=== PATIENT | male | born 1945 | race Caucasian/White ===

== ENCOUNTER 2022-04-10 16:44 | Inpatient (IN) | payer MEDICARE, OTHER ==
[~2022-04-10] VITALS: Ht 157.5 cm; Wt 62.6 kg
--- NOTE | 2022-04-10 16:50 | NUR ---
PT CAME WITH 911 WITH OXYGEN FACE MASK ON,IMMEDIATELY CHANGED TO NONREBREATHER, IV ON LEFT FOREARM,HAD SHORNTESS OF BREATH AND TACHYPNEA AND DIAPHORETIC,SAT 97% DR IN BEDSIDE, RT IN BEDISDE
--- NOTE | 2022-04-10 16:50 | NUR ---
RT PT WAS PLACE ON BIPAP WITH INITAL SETTINGS OFF IPAP 10 EPEP 5 RATE 16 FIO2 100% PT TX WAS GIVEN ALBUTEROL 10MG ATROVENT 5MG. TOLERATED WELL MASK SECURED WITH SMALL LEAK. WILL CONTINUE TO MONITOR PT.
[2022-04-10] MEDS ORDERED: ALBUTEROL SULFATE 2.5 MG/3 ML NEBU ONE ×3 (16:54→22:31)
[2022-04-10] MEDS ORDERED: ALBUTEROL SULFATE 2.5 MG/3 ML NEBU NEB ONE ×2 (17:00→17:30)
[2022-04-10] MEDS ORDERED: methylPREDNISolone SOD SUCC 125 MG/2 ML VIAL IV ONE (17:00)
[2022-04-10] MEDS ORDERED: IPRATROPIUM BROMIDE 0.5 MG/2.5 ML NEBU NEB ONE ×2 (17:00)
[2022-04-10 17:15] LABS: CREATININE 0.8 mg/dL (0.6-1.3); POTASSIUM 4.2 mmol/L (3.5-5.1)
[2022-04-10] MEDS ORDERED: methylPREDNISolone SOD SUCC 125 MG/2 ML VIAL ONE (17:17)
[2022-04-10 17:19] LABS: HEMATOCRIT 39.8 % (36.7-47.1); MEAN CORPUSCULAR HEMOGLOBIN 31.8 uug (23.8-33.4); MEAN CORPUSCULAR VOLUME 93.4 fL (73.0-96.2); PLATELET COUNT (AUTO) 288 K/uL (152-348)
[2022-04-10] MEDS ORDERED: MAGNESIUM SULFATE/D5W 100 ML ONE ×2 (17:22→18:21)
[2022-04-10] MEDS ORDERED: TERBUTALINE SULFATE 1 MG/1 ML VIAL ONE (17:23)
[2022-04-10 17:28] LABS: BILIRUBIN,TOTAL 0.4 mg/dL (0.2-1.0); MAGNESIUM 2.1 mg/dL (1.8-2.4); TOTAL PROTEIN, SERUM 7.8 g/dL (6.4-8.2)
--- NOTE | 2022-04-10 17:29 | NUR ---
Within 10 minutes of arrival pt. placed on BIPAP 10/5 Rate of 16, and 100% FIO2.
[2022-04-10] MEDS ORDERED: TERBUTALINE SULFATE 1 MG/1 ML VIAL SQ ONE (17:30)
[2022-04-10] MEDS ORDERED: MAGNESIUM SULFATE 2 GM in IV DEXTROSE 5% 100 ML IV ONE (17:30)
--- NOTE | 2022-04-10 17:30 | NUR ---
Pt. with c/of shortness of breath despite BIPAP use. at bedside and at this time another round of breathing treatment given and BIPAP settings changed to 16/8 Rate of 16, and 100% FIO2.
--- NOTE | 2022-04-10 17:35 | NUR ---
HR of 155, SBP 202/105. Pt. AAOx4. saturation of 100%.
--- NOTE | 2022-04-10 17:41 | NUR ---
RT PT BIPAP CHANGES MADE PER MD ORDER IPAP 16 EPAP 8 RATE 16 FIO2 100%. PT DID NOT TOLERATED PREVIOUS SETTING. PT AT THIS TIME IS TOLERATING NEW BIPAP SETTING ALARMS ON AND AUDIBLE PT SECOND ALBUTEROL 5MG TX GIVEN WILL CONTINUE TO MONITOR PT. PT HR REMAINS ELEVATED RN AWARE.
[2022-04-10] MEDS ORDERED: ALBU0.63 NEB (17:44)
[2022-04-10] MEDS ORDERED: TIOT18CA3 INH (17:44)
[2022-04-10] MEDS ORDERED: BUDE10.2 INH (17:44)
--- NOTE | 2022-04-10 17:45 | NUR ---
Dr. Garcia on the phone with [facility] admitting physician Dr. Martin. Orders to admit pt. as ICU received.
[2022-04-10] MEDS ORDERED: MAGNESIUM HYDROXIDE 30 ML LIQUID UDC PO PRN (18:15)
[2022-04-10] MEDS ORDERED: ACETAMINOPHEN 325 MG TABLET PO PRN (18:15)
[2022-04-10] MEDS ORDERED: REMEDY ESSENTIAL ZINC PASTE 113 GM TP PRN (18:15)
[2022-04-10] MEDS ORDERED: ONDANSETRON 4 MG/2 ML VIAL IV PRN (18:15)
--- NOTE | 2022-04-10 18:55 | NUR ---
Report given to incoming R.N.
--- NOTE | 2022-04-10 19:07 | NUR ---
received patient a/ox4, saline lock on LT forearm
--- NOTE | 2022-04-10 19:30 | NUR ---
No ICU nurse available at this time
--- NOTE | 2022-04-10 19:31 | NUR ---
Patient will be in ER as an overflow ICU patient. ER charting will be done
--- NOTE | 2022-04-10 20:00 | NUR ---
Spoke with Dima LEMUScaddy/caddie supervisor. Still looking for an ICU nurse at this time
[2022-04-10] MEDS ORDERED: ENOXAPARIN SODIUM 40 MG/0.4 ML DISP.SYRIN SQ ONE (20:05)
[2022-04-10] MEDS: ENOXAPARIN SODIUM 40 MG/0.4 ML DISP.SYRIN SQ SCH (20:11)
[2022-04-10] MEDS ORDERED: TEMAZEPAM 15 MG CAPSULE PO PRN (21:00)
[2022-04-10] MEDS: DOCUSATE SODIUM 250 MG CAPSULE PO SCH (21:00)
--- NOTE | 2022-04-10 21:00 | NUR ---
Patient is awake, a/ox4
[2022-04-10] MEDS ORDERED: DOCUSATE SODIUM 100 MG CAPSULE PO ONE (21:06)
[2022-04-10] MEDS: ALBUTEROL SULFATE 2.5 MG/3 ML NEBU NEB SCH (22:25)
[2022-04-10] MEDS: IPRATROPIUM BROMIDE 0.5 MG/2.5 ML NEBU NEB SCH (22:25)
[2022-04-10] MEDS ORDERED: IPRATROPIUM BROMIDE 0.5 MG/2.5 ML NEBU ONE (22:31)
--- NOTE | 2022-04-10 22:40 | NUR ---
Patient is back on bipap
[2022-04-10] MEDS ORDERED: CLONIDINE HCL 0.1 MG TABLET PO PRN (22:45)
[2022-04-10] MEDS ORDERED: DILTIAZEM HCL 25 MG IV IV PRN (22:45)
[2022-04-11] MEDS ORDERED: methylPREDNISolone SOD SUCC 40 MG/ML VIAL ONE ×2 (00:02→06:11)
--- NOTE | 2022-04-11 00:20 | NUR ---
Patient is off Bipap
--- NOTE | 2022-04-11 00:30 | NUR ---
Patient is able to tolerate 02 on simple mask. Patient is saturating @100%
[2022-04-11] MEDS ORDERED: CLONIDINE HCL 0.1 MG TABLET ONE (00:46)
[2022-04-11] MEDS ORDERED: DILTIAZEM HCL 25 MG IV ONE ×2 (00:47→00:50)
[2022-04-11] MEDS ORDERED: LORAZEPAM 2 MG/1 ML VIAL ONE ×4 (00:47→22:23)
[2022-04-11] MEDS: LORAZEPAM 2 MG/1 ML VIAL IV PRN ×4 (01:00→22:40)
[2022-04-11] MEDS: IPRATROPIUM BROMIDE 0.5 MG/2.5 ML NEBU NEB SCH ×4 (01:30→19:35)
[2022-04-11] MEDS: ALBUTEROL SULFATE 2.5 MG/3 ML NEBU NEB SCH ×4 (01:30→19:35)
--- NOTE | 2022-04-11 02:20 | NUR ---
PATIENT REFUSED 0100 TX. PATIENT WOKE UP AND SAID HE WANTS TO SLEEP MORE AND DID NOT WANT HIS BREATHING TREATMENT. PATIENT WENT BACK TO SLEEP. NO RESP DISTRESS OR SOB NOTED AT THIS TIME.
[2022-04-11 04:33] LABS: ABG BASE EXCESS 0.1 mmol/L; ABG HCO3 25.2 mmol/L; ABG PCO2 42.5 mmHg (35.0-45.0); ABG PH 7.391 (7.350-7.450); ABG PO2 539.5 mmHg (75.0-100.0); ABG SITE RIGHT RADIAL; ABG TOTAL HEMOGLOBIN 14.3 G/dL (13.5-18.0); COHb 3.5 % (0.5-1.5); MetHb 0.3 % (0.0-1.5); O2Hb 96.1 % (94.0-97.0); VENT MODE BIPAP
[2022-04-11] MEDS: methylPREDNISolone SOD SUCC 40 MG/ML VIAL IV SCH ×4 (06:00→17:16)
--- NOTE | 2022-04-11 06:40 | NUR ---
Patient is on 02 NC saturating @ 98%
--- NOTE | 2022-04-11 07:04 | NUR ---
change of shift report to Macarena LEMUS
[2022-04-11 07:07] LABS: HEMATOCRIT 36.4 % (36.7-47.1); MEAN CORPUSCULAR HEMOGLOBIN 31.9 uug (23.8-33.4); MEAN CORPUSCULAR VOLUME 94.3 fL (73.0-96.2); PLATELET COUNT (AUTO) 266 K/uL (152-348)
[2022-04-11] MEDS ORDERED: ALBUTEROL SULFATE 2.5 MG/3 ML NEBU ONE ×3 (07:10→19:27)
[2022-04-11] MEDS ORDERED: IPRATROPIUM BROMIDE 0.5 MG/2.5 ML NEBU ONE ×3 (07:11→19:27)
--- NOTE | 2022-04-11 07:15 | NUR ---
Received pt. sleeping equipment monitor phototypesetting off. patient reconnected and heart rate in the 70-100, saturation of 100% on NC 3L. sbp of 140/53. AAOx4. coughing persistently. Breathing treatment initiated by RT who arrived at this time. Will continue to monitor.
[2022-04-11 07:51] LABS: CREATININE 0.9 mg/dL (0.6-1.3); MAGNESIUM 2.6 mg/dL (1.8-2.4); PHOSPHOROUS 4.8 mg/dL (2.5-4.9); POTASSIUM 4.2 mmol/L (3.5-5.1)
--- NOTE | 2022-04-11 08:00 | NUR ---
Patient seen by attending, who discussed care plan, and for now pt. will remains under ICU observation.
--- NOTE | 2022-04-11 08:49 | NUR ---
Pulmonary services, Dr. Nuno in the unit to see and examine pt. notified of pt's persistent cough and wheezing and pt's request for cough medications.
[2022-04-11] MEDS ORDERED: IPRATROPIUM BROMIDE 0.5 MG/2.5 ML NEBU NEB PRN (09:00)
[2022-04-11] MEDS ORDERED: GUAIFENESIN/CODEINE 5 ML LIQUID UDC PO PRN (09:15)
[2022-04-11] MEDS ORDERED: FAMOTIDINE 20 MG TABLET ONE ×2 (09:17→22:31)
[2022-04-11] MEDS ORDERED: CEFTRIAXONE /D5W 50ML IVPB **ER PYXIS IV ONE (09:17)
[2022-04-11] MEDS ORDERED: HYDROCODONE BIT/HOMATROPINE 5 ML UDC ONE (09:19)
[2022-04-11] MEDS: FAMOTIDINE 20 MG TABLET PO SCH ×2 (09:21→21:00)
[2022-04-11] MEDS: CEFTRIAXONE 1 G in IV DEXTROSE 5% 50 ML IV SCH (09:22)
--- NOTE | 2022-04-11 09:38 | NUR ---
late entry on this day I pull hydromet syrup and administered as ordered by . some how by user error, or technology error, scanning meds were showing on different computers. medication scanning was not saved.
[2022-04-11] MEDS: HYDROCODONE BIT/HOMATROPINE 5 ML UDC PO PRN (09:45)
[2022-04-11] MEDS ORDERED: methylPREDNISolone SOD SUCC 125 MG/2 ML VIAL ONE ×2 (13:02→17:15)
[2022-04-11] MEDS ORDERED: HYDROCODONE/APAP 5-325MG TABLET ONE (13:16)
[2022-04-11] MEDS: HYDROCODONE/APAP 5-325MG TABLET PO PRN (13:16)
--- NOTE | 2022-04-11 19:36 | NUR ---
Report given to rn. Orellana.
--- NOTE | 2022-04-11 20:20 | NUR ---
asssumed care pt found in bed on nasal cannula, pre report ptis top be admitted to intensive care d/t tachycardia and respiratory distress. pt found sitting on the edge of the bed, attacehd to personnel monitor, pulse ox, and blood pressure cuff. pt alert and oriented, able to answer all question appropriately.pt asked ot sit at edge od the edge which RN declined as it created a fall risk, pt educated about risks.
[2022-04-11] MEDS: DOCUSATE SODIUM 250 MG CAPSULE PO SCH (21:00)
[2022-04-11] MEDS ORDERED: TEMAZEPAM 15 MG CAPSULE ONE (22:28)
[2022-04-11] MEDS ORDERED: ENOXAPARIN SODIUM 40 MG/0.4 ML DISP.SYRIN SQ ONE (22:31)
[2022-04-11] MEDS ORDERED: DOCUSATE SODIUM 100 MG CAPSULE PO ONE (22:31)
[2022-04-12] VITALS (14 sets, daily range): BP systolic 116–187; BP diastolic 68–103
[2022-04-12] MEDS ORDERED: ALBUTEROL SULFATE 2.5 MG/3 ML NEBU ONE ×2 (00:06→21:40)
[2022-04-12] MEDS ORDERED: IPRATROPIUM BROMIDE 0.5 MG/2.5 ML NEBU ONE ×4 (00:06→21:41)
[2022-04-12] MEDS: ALBUTEROL SULFATE 2.5 MG/3 ML NEBU NEB SCH ×5 (00:07→21:35)
[2022-04-12] MEDS: IPRATROPIUM BROMIDE 0.5 MG/2.5 ML NEBU NEB SCH ×5 (00:08→21:35)
[2022-04-12] MEDS ORDERED: methylPREDNISolone SOD SUCC 125 MG/2 ML VIAL ONE ×3 (00:38→09:20)
[2022-04-12] MEDS ORDERED: DILTIAZEM HCL 25 MG IV ONE ×3 (01:00→23:38)
[2022-04-12] MEDS: ENOXAPARIN SODIUM 40 MG/0.4 ML DISP.SYRIN SQ SCH ×2 (02:10→23:34)
--- NOTE | 2022-04-12 02:19 | NUR ---
pt restignig bed, nightime PRN delayed in efficacy but eventually therapuetic. pt placed on BiPaP d/t decreased oxygenation, pt responed appropriately to therapy, pt noted to be constasntly tachycadic, admistered PRN for elevated heart rate with intended effect Addendum: 04/12/22 at 0231 by [email or web address] pt has been restless as noted earlier the entire night. pt cannot be verbally redirected or reassured. pt contnues to take off his street clothing and also refuses gown. pt has been found several times sitting on the edge of the bed. pt educated as to risk of fall and dangers associated and despite understanding, continues with action. vehicle operator made aware of need for sitter for pt, none-available at this time
[2022-04-12 05:32] LABS: MEAN CORPUSCULAR HEMOGLOBIN 31.9 uug (23.8-33.4); PLATELET COUNT (AUTO) 274 K/uL (152-348)
[2022-04-12 05:41] LABS: CREATININE 1.1 mg/dL (0.6-1.3); PHOSPHOROUS 5.6 mg/dL (2.5-4.9); POTASSIUM 5.3 mmol/L (3.5-5.1)
--- NOTE | 2022-04-12 05:47 | NUR ---
pt extremely restless, continuously trying to get out of bed for the past 10 hours, pt has been reminded, pt has been medicated both with only partial success. pt will be redirected for 5-10 mins after which he begins to fiddle with lines, take off blood pressure cuff, pulse ox, bipap mask and anything else he can reach including his IV sites. pt found sitting onedge of bed, O2 saturation in the high 70s. pt combative when trying to be assisted back to bed. pt began tryign to strike RN, at [facility] point RN obtained additional help. RN collueage able to redirect pt in bed, where pt refuses to wear bipap mask. pt placed on nasal cannula. pt sts he does not trust RN and would like to recieve care form a different RN, program development manager made aware, no reassignment possible. Sitter again requested for pts safety, RN informed there are no sitters available
[2022-04-12] MEDS: methylPREDNISolone SOD SUCC 40 MG/ML VIAL IV SCH ×4 (06:31→17:29)
--- NOTE | 2022-04-12 07:00 | NUR ---
CARE ASSUME FROM OUTGOING RN, PT RESTLESS AND ANXIOUS, ORIENTED X3 AND REPORTS LACK OF SLEEP AND SITTING ON EDGE OF ST. ASSIST BACK ON ST WITH X 2 ASSIST INCLUDING KNOCKER OFF RN AND POSITION FOR COMFORT. PER REPORT PT RECEIVED ATIVAN 2 MG AND RESTORIL BUT UNABLE TO SLEEP, REQUESTED SITTER AND NOTIFIED HOUSE SUPREVISOR.
--- NOTE | 2022-04-12 07:00 | NUR ---
ASSUME CARE, ASSISTED BACK ON ST AND POSITION FOR COMFORT.
[2022-04-12] MEDS ORDERED: ALBUTEROL SULFATE 1.25 MG/3 ML NEBU ONE ×2 (08:03→13:28)
[2022-04-12] MEDS ORDERED: HYDROCODONE BIT/HOMATROPINE 5 ML UDC ONE (08:31)
[2022-04-12] MEDS: HYDROCODONE BIT/HOMATROPINE 5 ML UDC PO PRN (08:39)
[2022-04-12] MEDS ORDERED: FAMOTIDINE 20 MG TABLET ONE (09:19)
[2022-04-12] MEDS ORDERED: CEFTRIAXONE /D5W 50ML IVPB **ER PYXIS IV ONE (09:19)
[2022-04-12] MEDS: FAMOTIDINE 20 MG TABLET PO SCH (09:23)
[2022-04-12] MEDS: CEFTRIAXONE 1 G in IV DEXTROSE 5% 50 ML IV SCH (09:24)
[2022-04-12 10:40] LABS: ABG BASE EXCESS 1.2 mmol/L; ABG PCO2 53.6 mmHg (35.0-45.0); ABG PH 7.336 (7.350-7.450); ABG PO2 82.1 mmHg (75.0-100.0); ABG SITE RIGHT RADIAL; ABG TOTAL HEMOGLOBIN 13.6 G/dL (13.5-18.0); COHb 0.5 % (0.5-1.5); MetHb 0.3 % (0.0-1.5); O2Hb 95.4 % (94.0-97.0); VENT MODE Nasal Cannula
[2022-04-12] MEDS: GUAIFENESIN LA 600 MG TABLET.SA PO SCH (12:00)
--- NOTE | 2022-04-12 12:00 | NUR ---
A,A AND O X 4, COOPERATIVE AND CALM, ASSISTED WITH SIPS OF WATER AND FED FEW BITES OF FRIES. APPETITE POOR , SOB AND ON BIPAP.
[2022-04-12] MEDS ORDERED: GUAIFENESIN LA 600 MG TABLET.SA PO ONE ×2 (13:53)
[2022-04-12] MEDS ORDERED: methylPREDNISolone SOD SUCC 40 MG/ML VIAL ONE ×2 (15:57→16:00)
--- NOTE | 2022-04-12 16:00 | NUR ---
PATIENT IN RESTRAINTS, OBTAIN ORDER FROM DR. TINSLEY.PER CM ST AT 110-120 BPM NON SUSTAIN. SAT ON FIO2 40%.100%.MAINTAIN SAFE ENVIRONMENT.
[2022-04-12] MEDS: DILTIAZEM HCL 25 MG IV IV PRN ×2 (16:42→23:42)
--- NOTE | 2022-04-12 19:40 | NUR ---
REPORT GIVEN TO INCOMING RN ROXANA LEMUS IN CHARGE
--- NOTE | 2022-04-12 20:30 | NUR ---
Pt refused EKG, states he wants to leave.
--- NOTE | 2022-04-12 20:45 | NUR ---
Called Dr. Martin for patient desire to go AMA. Dr. Layne spoke to patient given information related to possible complications, up to and including , which could occur as a result of leaving the hospital at this time. Patient verbalizes understanding of risks involved due to leaving against medical advice.
--- NOTE | 2022-04-12 20:52 | NUR ---
Called patient's daughter to pickup patient, left message.
--- NOTE | 2022-04-12 22:07 | NUR ---
Notified Dr. Layne for patient's condition, Called RT.
[2022-04-12] MEDS ORDERED: SUCCINYLCHOLINE CHLORIDE 200 MG/10 ML VIAL IV ONE (22:15)
[2022-04-12] MEDS ORDERED: ETOMIDATE 20 MG/10 ML VIAL IV ONE (22:15)
--- NOTE | 2022-04-12 22:17 | NUR ---
RT placed patient back on bipap. Intubation canceled by Dr. Layne.
[2022-04-12] MEDS ORDERED: ENOXAPARIN SODIUM 40 MG/0.4 ML DISP.SYRIN SQ ONE (23:31)
[2022-04-13] VITALS (48 sets, daily range): BP systolic 63–178; BP diastolic 42–115
[2022-04-13] MEDS ORDERED: LORAZEPAM 2 MG/1 ML VIAL ONE ×4 (00:04→09:43)
[2022-04-13] MEDS: LORAZEPAM 2 MG/1 ML VIAL IV PRN ×3 (00:11→09:47)
[2022-04-13 00:12] LABS: ABG HCO3 26.5 mmol/L; ABG PCO2 61.3 mmHg (35.0-45.0); ABG PH 7.253 (7.350-7.450); ABG PO2 270.2 mmHg (75.0-100.0); ABG SITE RIGHT BRACHIAL; ABG TOTAL HEMOGLOBIN 14.2 G/dL (13.5-18.0); COHb 0.7 % (0.5-1.5); MetHb 0.3 % (0.0-1.5); O2Hb 98.8 % (94.0-97.0); VENT MODE BIPAP
[2022-04-13] MEDS ORDERED: methylPREDNISolone SOD SUCC 40 MG/ML VIAL ONE ×4 (00:12→12:50)
[2022-04-13] MEDS: GUAIFENESIN LA 600 MG TABLET.SA PO SCH ×3 (00:16→23:31)
[2022-04-13] MEDS: methylPREDNISolone SOD SUCC 40 MG/ML VIAL IV SCH ×5 (00:16→23:32)
[2022-04-13] MEDS: DOCUSATE SODIUM 250 MG CAPSULE PO SCH ×2 (00:16→21:00)
[2022-04-13] MEDS: FAMOTIDINE 20 MG TABLET PO SCH ×3 (00:17→23:32)
--- NOTE | 2022-04-13 00:17 | NUR ---
2100 meds held due to patient very agitated to follow instructions.
[2022-04-13] MEDS ORDERED: ALBUTEROL SULFATE 2.5 MG/3 ML NEBU ONE ×3 (01:06→19:31)
[2022-04-13] MEDS ORDERED: IPRATROPIUM BROMIDE 0.5 MG/2.5 ML NEBU ONE ×4 (01:06→19:31)
--- NOTE | 2022-04-13 01:35 | NUR ---
Called [facility] to page Tata Johnson DNP
[2022-04-13] MEDS: IPRATROPIUM BROMIDE 0.5 MG/2.5 ML NEBU NEB SCH ×4 (01:36→21:24)
[2022-04-13] MEDS: ALBUTEROL SULFATE 2.5 MG/3 ML NEBU NEB SCH ×4 (01:36→21:24)
[2022-04-13] MEDS ORDERED: LORAZEPAM 2 MG/1 ML VIAL IV ONE (02:15)
--- NOTE | 2022-04-13 02:15 | NUR ---
Received call back Tata Johnson DNP. New Orders Ativan 2mg IV push once.
--- NOTE | 2022-04-13 03:06 | NUR ---
PATIENT ON BI/PAP , WITH LARGE MASK, VERY RESTLESS, AND PULLING OFF MASK, TAKEN OFF EARLY PART OF THE SHIFT, PT ON 3L/M NC, WITH NEB RX, RESTLESS, MOVING AROUND A LOT, HAVING TROUBLE BREATHING, THEN PLACED BACK ON BI/PAP VERY AGITATED AT TIMES, 19/03 , R18, TITRATE FIO2 60%, ABG WAS DRAWN ON, THEN DECREASE TO 32%, THEN 28%, PT HAS COPD, ADJUST MASK, ABG IN AM OFF BI/PAP JOSELUIS DUMONT Addendum: 04/13/22 at 0309 by MARIXA PARRA Amended: Links added.
[2022-04-13 05:38] LABS: HEMATOCRIT 39.7 % (36.7-47.1); MEAN CORPUSCULAR HEMOGLOBIN 31.7 uug (23.8-33.4); MEAN CORPUSCULAR VOLUME 93.8 fL (73.0-96.2); PLATELET COUNT (AUTO) 318 K/uL (152-348)
[2022-04-13 06:04] LABS: CARBON DIOXIDE 26 mmol/L (21-32); CHLORIDE 98 mmol/L (98-107); CREATININE 1.5 mg/dL (0.6-1.3); GLUCOSE 97 mg/dL (74-106); PHOSPHOROUS 5.6 mg/dL (2.5-4.9); POTASSIUM 5.3 mmol/L (3.5-5.1); UREA NITROGEN, BLOOD 51 mg/dL (7-18)
--- NOTE | 2022-04-13 07:10 | NUR ---
Received pt. Restless agitated, on BUE soft and mittens restrains, NC off unable to see saturation reading on monitor. nuclear monitoring technician off as per manager night nurse monitor not working pt. forcefully removed cable. cable reattached and monitor working Cardiac-lorenzana pt. with heart rate in the 138-148. saturation of 97%. once patient placed back on oxygen. IV line infiltrated swollen and leaking. Skin tear to LFA as per nurse pt. bang his arm against side rail and sustained injury when his skin was press against side rail and his watch. Patient noted to be bleeding from the area dressing applied. Morning care provided, pt. found soaked in urine. notified and orders to insert santana catheter received. Will continue with care plan.
--- NOTE | 2022-04-13 08:37 | NUR ---
Placed pt back on BIPAP, due to increase WOB and SpO2<90 at this time. will cont to monitor. Rn aware
[2022-04-13] MEDS: CEFTRIAXONE 1 G in IV DEXTROSE 5% 50 ML IV SCH (10:45)
--- NOTE | 2022-04-13 11:00 | NUR ---
Pulmonary services Dr. Aguilar in the unit to see and examine pt. bedside report given and after reviewing pt's ABG orders to intubate pt. received. himself spoke with ER. Physician Dr. Zarco
[2022-04-13] MEDS ORDERED: hydrALAZINE HCL 20 MG/1 ML VIAL IV PRN (11:15)
[2022-04-13] MEDS ORDERED: NOREPINEPHRINE BITARTRATE 32 MG in IV NORMAL SALINE 218 ML IV PRN (11:15)
[2022-04-13] MEDS ORDERED: PROPOFOL 100 ML ONE ×3 (11:19→21:43)
--- NOTE | 2022-04-13 11:20 | NUR ---
At this attending physician Dr. Martin in the unit to examine pt. report given orders for nutritional consult received.
--- NOTE | 2022-04-13 11:30 | NUR ---
Baldo Zarco at bedside as well as RT team and Stevie Boston assistance, Pt intubated at this time. ETT 7.5 24LL Patient Vent setting as ordered by Dr. Aguilar A/C 18, TV 450 and 100% FIO2. During intubation pt. received a total of 20mg of Etomidate and 9mg of Vecuronium drawn and administered by Stevie Chung.
--- NOTE | 2022-04-13 11:40 | NUR ---
Intubation followed by STAT chest X-ray For ETT placement confirmation. NG placement as well. at this time orders fo picc line received.
--- NOTE | 2022-04-13 12:10 | NUR ---
FIO2% 60 at this time.
[2022-04-13] MEDS: PROPOFOL 100 ML IV PRN ×3 (12:44→23:32)
[2022-04-13] MEDS ORDERED: VECURONIUM BROMIDE 10 MG VIAL IV ONE (12:53)
[2022-04-13] MEDS ORDERED: ETOMIDATE 20 MG/10 ML VIAL IV ONE (12:53)
--- NOTE | 2022-04-13 13:20 | NUR ---
ABG post intubation called to Dr. Aguilar orders to decreased FIO2 to 45%. received and implemented.
[2022-04-13] MEDS ORDERED: ALBUTEROL SULFATE 1.25 MG/3 ML NEBU ONE (13:31)
--- NOTE | 2022-04-13 13:53 | NUR ---
Medications not scanned computer scanner not working.
[2022-04-13] MEDS: PHENYLEPHRINE IV 50 MG in IV NORMAL SALINE 245 ML IV PRN ×2 (14:59→20:17)
[2022-04-13] MEDS ORDERED: DILTIAZEM HCL 25 MG IV IV PRN (15:45)
[2022-04-13] MEDS: IV D5/ 0.9% NACL 1,000 ML IV PRN (17:00)
[2022-04-13] MEDS ORDERED: IV NS 1000 ML 1,000 ML IV ONE (17:30)
[2022-04-13] MEDS ORDERED: methylPREDNISolone SOD SUCC 125 MG/2 ML VIAL ONE (17:50)
[2022-04-13] MEDS ORDERED: JEVITY 1.2 1000 ML LIQUID GT PRN (19:00)
--- NOTE | 2022-04-13 19:20 | NUR ---
Bedside report given incoming R.N. Patient left on ventilator with no changes. Adequately sedated. Ng -t in place. santana to gravity. Cardiac-lorenzana on NSR.
[2022-04-13] MEDS ORDERED: ENOXAPARIN SODIUM 40 MG/0.4 ML DISP.SYRIN SQ ONE (23:26)
[2022-04-13] MEDS ORDERED: GUAIFENESIN LA 600 MG TABLET.SA PO ONE (23:27)
[2022-04-13] MEDS ORDERED: HYDROCORTISONE SOD SUCCINATE 100 MG/2 ML VIAL IV ONE (23:27)
[2022-04-13] MEDS ORDERED: FAMOTIDINE 20 MG TABLET ONE (23:27)
[2022-04-13] MEDS: ENOXAPARIN SODIUM 40 MG/0.4 ML DISP.SYRIN SQ SCH (23:34)
[2022-04-14] VITALS (51 sets, daily range): BP systolic 89–147; BP diastolic 53–85
[2022-04-14 00:05] LABS: ABG BASE EXCESS -0.9 mmol/L; ABG HCO3 26.2 mmol/L; ABG PCO2 53.3 mmHg (35.0-45.0); ABG PH 7.309 (7.350-7.450); ABG PO2 121.1 mmHg (75.0-100.0); ABG SITE RIGHT BRACHIAL; ABG TOTAL HEMOGLOBIN 13.9 G/dL (13.5-18.0); COHb 0.6 % (0.5-1.5); MetHb 0.1 % (0.0-1.5); O2Hb 97.5 % (94.0-97.0); VENT MODE Nasal Cannula
[2022-04-14 00:05] LABS: ABG BASE EXCESS -2.4 mmol/L; ABG HCO3 21.6 mmol/L; ABG PCO2 34.7 mmHg (35.0-45.0); ABG PH 7.411 (7.350-7.450); ABG PO2 101.8 mmHg (75.0-100.0); ABG SITE LEFT BRACHIAL; ABG TOTAL HEMOGLOBIN 13.3 G/dL (13.5-18.0); COHb 0.4 % (0.5-1.5); MetHb 0.2 % (0.0-1.5); O2Hb 97.3 % (94.0-97.0); VENT MODE VENT - A/C; VT, ABG 450 mL
[2022-04-14] MEDS ORDERED: ALBUTEROL SULFATE 2.5 MG/3 ML NEBU ONE ×2 (00:33→18:44)
[2022-04-14] MEDS ORDERED: IPRATROPIUM BROMIDE 0.5 MG/2.5 ML NEBU ONE ×4 (00:33→18:45)
[2022-04-14] MEDS: ALBUTEROL SULFATE 2.5 MG/3 ML NEBU NEB SCH ×4 (00:38→20:30)
[2022-04-14] MEDS: IPRATROPIUM BROMIDE 0.5 MG/2.5 ML NEBU NEB SCH ×4 (00:38→20:29)
--- NOTE | 2022-04-14 00:45 | NUR ---
PATIENT ON CONT PARMAR VENT WITH 7.5 ET/TUBE IN PLACE AND SECURED WITH ANCHOR FAST, MOVE Q3 HOURS, PT SEDATED ON DIPRIVAN, MOSTLY WITH CONTROLLED VENTILATION, SUCTION, PRN, NO VENT CHANGES MADE, ALL VENT ALARMS GOOD, FIO2 @ 30%, GOOD OXYGENATION, NEB INLINE X 2 WITH UDP/ UDA, CHANGE HME . Cruz ROSSIP Addendum: 04/14/22 at 0047 by MARIXA HUGGINS RT Amended: Links added.
[2022-04-14] MEDS: IV D5/ 0.9% NACL 1,000 ML IV PRN (02:59)
[2022-04-14] MEDS ORDERED: PROPOFOL 100 ML ONE ×4 (03:42→19:25)
[2022-04-14] MEDS: PROPOFOL 100 ML IV PRN ×4 (04:16→19:57)
[2022-04-14 05:31] LABS: HEMATOCRIT 35.7 % (36.7-47.1); MEAN CORPUSCULAR HEMOGLOBIN 31.3 uug (23.8-33.4); MEAN CORPUSCULAR VOLUME 94.6 fL (73.0-96.2); PLATELET COUNT (AUTO) 207 K/uL (152-348)
[2022-04-14 05:45] LABS: CREATININE 1.2 mg/dL (0.6-1.3); MAGNESIUM 2.8 mg/dL (1.8-2.4); PHOSPHOROUS 3.1 mg/dL (2.5-4.9); POTASSIUM 3.7 mmol/L (3.5-5.1)
[2022-04-14] MEDS ORDERED: methylPREDNISolone SOD SUCC 40 MG/ML VIAL ONE (06:08)
[2022-04-14] MEDS: methylPREDNISolone SOD SUCC 40 MG/ML VIAL IV SCH ×4 (06:12→23:37)
--- NOTE | 2022-04-14 07:15 | NUR ---
Received pt. properly sedated,saturation within desired limits. cardiac-lorenzana stable with Neosynphrine funning at 0.1mck/kg/min. santana to gravity. NG tube with feeding running. Will continue to monitor.
[2022-04-14] MEDS ORDERED: ALBUTEROL SULFATE 1.25 MG/3 ML NEBU ONE ×2 (07:25→13:23)
[2022-04-14] MEDS ORDERED: FAMOTIDINE 20 MG TABLET ONE ×2 (08:09→20:43)
[2022-04-14] MEDS ORDERED: GUAIFENESIN LA 600 MG TABLET.SA PO ONE ×2 (08:10→20:43)
[2022-04-14] MEDS: FAMOTIDINE 20 MG TABLET PO SCH ×2 (08:11→20:44)
[2022-04-14] MEDS: GUAIFENESIN LA 600 MG TABLET.SA PO SCH ×2 (08:11→20:44)
[2022-04-14] MEDS: IV NS 1000 ML 1,000 ML IV PRN ×2 (09:11→19:56)
[2022-04-14] MEDS ORDERED: MAGNESIUM SULFATE/D5W 100 ML IV SCH (09:45)
[2022-04-14] MEDS: CEFTRIAXONE 1 G in IV DEXTROSE 5% 50 ML IV SCH (10:21)
[2022-04-14] MEDS ORDERED: methylPREDNISolone SOD SUCC 125 MG/2 ML VIAL ONE ×3 (12:21→23:36)
--- NOTE | 2022-04-14 13:00 | NUR ---
Pulmonary services, Dr. Aguilar in the unit report given and orders to continue with care plan. As stated plans for weaning trial tomorrow with no specific orders.
[2022-04-14] MEDS ORDERED: ENOXAPARIN SODIUM 40 MG/0.4 ML DISP.SYRIN SQ ONE (20:42)
[2022-04-14] MEDS ORDERED: DOCUSATE SODIUM 100 MG CAPSULE PO ONE (20:43)
[2022-04-14] MEDS: ENOXAPARIN SODIUM 40 MG/0.4 ML DISP.SYRIN SQ SCH (20:45)
[2022-04-14] MEDS: DOCUSATE SODIUM 250 MG CAPSULE PO SCH (20:46)
[2022-04-14] MEDS ORDERED: HYDROCODONE BIT/HOMATROPINE 5 ML UDC ONE (20:54)
[2022-04-14] MEDS: HYDROCODONE BIT/HOMATROPINE 5 ML UDC PO PRN (20:55)
--- NOTE | 2022-04-14 20:55 | NUR ---
Patient with 2nd episode of non-stop coughing and triggering the vent alarm, when coughing retracting all his chest muscles. Addendum: 04/14/22 at 2110 by LUCIAN WARNER RN The episode of coughing is accompanied by wheezing, desaturation to 85%, HR in the 120's.
[2022-04-14] MEDS ORDERED: HYDROCODONE/APAP 5-325MG TABLET ONE (21:59)
[2022-04-14] MEDS: HYDROCODONE/APAP 5-325MG TABLET PO PRN (22:00)
[2022-04-15] VITALS (24 sets, daily range): BP systolic 101–141; BP diastolic 60–88
[2022-04-15 00:01] LABS: ABG BASE EXCESS -0.5 mmol/L; ABG HCO3 22.2 mmol/L; ABG PCO2 30.3 mmHg (35.0-45.0); ABG PH 7.482 (7.350-7.450); ABG PO2 62.4 mmHg (75.0-100.0); ABG SITE RIGHT RADIAL; ABG TOTAL HEMOGLOBIN 12.4 G/dL (13.5-18.0); COHb 0.2 % (0.5-1.5); MetHb 0.2 % (0.0-1.5); O2Hb 92.4 % (94.0-97.0); VENT MODE VENT - A/C; VT, ABG 450 mL
--- NOTE | 2022-04-15 00:03 | NUR ---
PATIENT ON CONT PARMAR VENT WITH 7.5 ET/TUBE IN PLACE AND SECURED WITH ANCHOR FAST IN PLACE AND SECURED, VENT SETTINGS, A/C 18, 450ML, FIO2 @ 30%, WITH NO VENT CHANGES MADE, NEB INLINE X 2 WITH UDP/ UDA, CHANGE HME, ALL VENT ALARMS GOOD, SUCTION PRN, PT WITH STRONG COUGH, PT IS SEDATED ON DIPRIVAN , AMBU BAG AT BEDSIDE, VENT PLUGGED INTO RED WALL OUT, WEANING ON DAY SHIFT.Cruz HUGGINS RCP Addendum: 04/15/22 at 0006 by MARIXA HUGGINS RT Amended: Links added.
[2022-04-15] MEDS ORDERED: PROPOFOL 100 ML ONE ×5 (00:44→23:58)
[2022-04-15] MEDS: PROPOFOL 100 ML IV PRN ×5 (00:47→20:22)
[2022-04-15] MEDS ORDERED: ALBUTEROL SULFATE 2.5 MG/3 ML NEBU ONE ×4 (01:28→22:17)
[2022-04-15] MEDS ORDERED: IPRATROPIUM BROMIDE 0.5 MG/2.5 ML NEBU ONE ×5 (01:29→22:17)
[2022-04-15] MEDS: ALBUTEROL SULFATE 2.5 MG/3 ML NEBU NEB SCH ×4 (01:43→19:59)
[2022-04-15] MEDS: IPRATROPIUM BROMIDE 0.5 MG/2.5 ML NEBU NEB SCH ×4 (01:43→19:59)
[2022-04-15 04:55] LABS: HEMATOCRIT 33.8 % (36.7-47.1); MEAN CORPUSCULAR HEMOGLOBIN 31.6 uug (23.8-33.4); MEAN CORPUSCULAR VOLUME 94.7 fL (73.0-96.2); PLATELET COUNT (AUTO) 184 K/uL (152-348)
[2022-04-15 05:06] LABS: MAGNESIUM 2.8 mg/dL (1.8-2.4); POTASSIUM 4.3 mmol/L (3.5-5.1)
[2022-04-15] MEDS ORDERED: methylPREDNISolone SOD SUCC 125 MG/2 ML VIAL ONE ×2 (05:19→12:41)
[2022-04-15] MEDS: methylPREDNISolone SOD SUCC 40 MG/ML VIAL IV SCH ×4 (05:22→23:26)
[2022-04-15] MEDS: IV NS 1000 ML 1,000 ML IV PRN ×2 (05:36→17:24)
--- NOTE | 2022-04-15 06:24 | NUR ---
Left pt. on ventilator ETT. 7.5, LL 25, On A.C R 18, Tv 450, FIo2 30% saturation within desired limits. During shift with episodes of coughing with use of accessory muscles and severe distress and desaturation down to 85%. Propofol titrated to achieve adequate sedation. ANDRZEJ, GAG/Cough reflex present. NG-T Clumped with feeding to be resumed at goal therapy, Pt. tolerating well no Residuals, no n/v/d. No BM during shift. Christie to gravity draining greenish color sedimented output. PICC line patent. IVF NS at 100cc/hr. Will endorse to incoming shift.
--- NOTE | 2022-04-15 07:00 | NUR ---
Received patient on ventilator ETT 7.5, LL 23, on AC R18, TV 450, Fi02 30%, saturating within limits. On propofol, sedated, not in distress. PICC line patent, infusing well.
[2022-04-15] MEDS ORDERED: ALBUTEROL SULFATE 1.25 MG/3 ML NEBU ONE ×2 (07:26→13:18)
--- NOTE | 2022-04-15 08:07 | NUR ---
WEANING WAS PLACED ON HOLD DUE TO PT'S HAVING RESPIRATORY DISTRESS MOST OF THE NIGHT. IN LINE MED GIVEN WITHOUT COMPLICATION.
[2022-04-15] MEDS ORDERED: FAMOTIDINE. 20 MG/2 ML VIAL IV ONE (08:32)
[2022-04-15] MEDS ORDERED: GUAIFENESIN LA 600 MG TABLET.SA PO ONE (08:32)
[2022-04-15] MEDS ORDERED: FAMOTIDINE 20 MG TABLET ONE ×2 (08:51→20:28)
[2022-04-15] MEDS ORDERED: GUAIFENESIN SUGAR FREE 100 MG/5 ML UDC ONE ×4 (09:04→23:02)
[2022-04-15] MEDS: FAMOTIDINE 20 MG TABLET PO SCH ×2 (09:06→20:29)
[2022-04-15] MEDS: GUAIFENESIN SUGAR FREE 100 MG/5 ML UDC PO SCH ×4 (09:06→23:26)
[2022-04-15] MEDS: CEFTRIAXONE 1 G in IV DEXTROSE 5% 50 ML IV SCH (09:08)
[2022-04-15] MEDS ORDERED: JEVITY 1.2 1000 ML LIQUID GT PRN (12:30)
[2022-04-15] MEDS ORDERED: methylPREDNISolone SOD SUCC 40 MG/ML VIAL ONE ×3 (12:53→23:02)
--- NOTE | 2022-04-15 13:00 | NUR ---
Spoke with daughter Cheli ([phone]). Requesting to get an update and if patient will be transferred to [place]. Per Dr Martin, patient can go to [facility] to arrange. IRAIDA made aware.
--- NOTE | 2022-04-15 14:00 | NUR ---
Patient started Jevity1.2 @65ml/hr x 22hrs per dietary recommendation and MD order, tolerating feeding well via ngt..
[2022-04-15 15:01] LABS: ABG BASE EXCESS -2.2 mmol/L; ABG HCO3 21.7 mmol/L; ABG PCO2 34.5 mmHg (35.0-45.0); ABG PH 7.417 (7.350-7.450); ABG PO2 101.1 mmHg (75.0-100.0); ABG SITE RIGHT RADIAL; ABG TOTAL HEMOGLOBIN 11.8 G/dL (13.5-18.0); COHb 0.3 % (0.5-1.5); MetHb 0.1 % (0.0-1.5); O2Hb 97.1 % (94.0-97.0); VENT MODE VENT - A/C; VT, ABG 450 mL
--- NOTE | 2022-04-15 16:53 | NUR ---
Sedation vacation not tolerated. Propofol remained 60mcg/kg/min as ordered.
[2022-04-15] MEDS: ALBUTEROL SULFATE 2.5 MG/ 0.5 ML NEBU NEB PRN ×2 (17:25→22:56)
--- NOTE | 2022-04-15 18:53 | NUR ---
Titrated propofol as ordered, desired dosed reached. patient not in distress. will continue to monitor.
[2022-04-15] MEDS ORDERED: DOCUSATE SODIUM 100 MG/10 ML LIQUID UDC ONE (20:27)
[2022-04-15] MEDS ORDERED: ENOXAPARIN SODIUM 40 MG/0.4 ML DISP.SYRIN SQ ONE (20:28)
[2022-04-15] MEDS: DOCUSATE SODIUM 100 MG/10 ML LIQUID UDC PO SCH (20:30)
[2022-04-15] MEDS: ENOXAPARIN SODIUM 40 MG/0.4 ML DISP.SYRIN SQ SCH (20:31)
[2022-04-15] MEDS ORDERED: LORAZEPAM 2 MG/1 ML VIAL ONE (23:20)
[2022-04-15] MEDS: LORAZEPAM 2 MG/1 ML VIAL IV PRN (23:21)
[2022-04-16] VITALS (20 sets, daily range): BP systolic 101–156; BP diastolic 59–84
[2022-04-16] MEDS ORDERED: IPRATROPIUM BROMIDE 0.5 MG/2.5 ML NEBU ONE ×4 (01:50→19:55)
[2022-04-16] MEDS ORDERED: ALBUTEROL SULFATE 1.25 MG/3 ML NEBU ONE (01:50)
[2022-04-16] MEDS: ALBUTEROL SULFATE 2.5 MG/3 ML NEBU NEB SCH ×4 (01:51→19:58)
[2022-04-16] MEDS: IPRATROPIUM BROMIDE 0.5 MG/2.5 ML NEBU NEB SCH ×4 (01:52→19:58)
[2022-04-16] MEDS: IV NS 1000 ML 1,000 ML IV PRN ×2 (03:45→13:41)
[2022-04-16] MEDS ORDERED: PROPOFOL 100 ML ONE ×5 (04:12→22:32)
[2022-04-16] MEDS: PROPOFOL 100 ML IV PRN ×6 (04:47→22:33)
[2022-04-16] MEDS ORDERED: GUAIFENESIN SUGAR FREE 100 MG/5 ML UDC ONE ×3 (05:01→19:13)
[2022-04-16] MEDS ORDERED: HYDROCORTISONE SOD SUCCINATE 100 MG/2 ML VIAL IV ONE (05:02)
[2022-04-16] MEDS: GUAIFENESIN SUGAR FREE 100 MG/5 ML UDC PO SCH ×4 (05:07→19:15)
[2022-04-16 05:08] LABS: HEMATOCRIT 32.9 % (36.7-47.1); MEAN CORPUSCULAR VOLUME 94.8 fL (73.0-96.2); PLATELET COUNT (AUTO) 196 K/uL (152-348)
[2022-04-16] MEDS ORDERED: methylPREDNISolone SOD SUCC 40 MG/ML VIAL ONE (05:10)
[2022-04-16] MEDS: methylPREDNISolone SOD SUCC 40 MG/ML VIAL IV SCH ×3 (05:11→18:24)
[2022-04-16 05:15] LABS: CREATININE 0.9 mg/dL (0.6-1.3); MAGNESIUM 2.7 mg/dL (1.8-2.4); PHOSPHOROUS 2.4 mg/dL (2.5-4.9); POTASSIUM 4.1 mmol/L (3.5-5.1)
--- NOTE | 2022-04-16 06:28 | NUR ---
NGT feeding tolerating well at goal rate. Vent settings unchanged. No significant changes during the shift. PICC line, patent, intact and infusing well. Turned and repositioned for perfusion. all needs attended. will endorse.
--- NOTE | 2022-04-16 06:30 | NUR ---
RT at bedside, breathing treatment provided as ordered. suctioned as needed. Noted with thick secretions. will endorse for continuity of care.
--- NOTE | 2022-04-16 06:37 | NUR ---
Per MD notes, defer weaning trial until this am. Possible weaning today. will endorse for continuity of care.
--- NOTE | 2022-04-16 07:00 | NUR ---
At this time propofol down to 40mcg/kg/min in preparation for weaning. At 0710 propofol down to 10mcg/kg/min. patient noted to be having difficulty breathing backing up ventilator and saturation 92%
[2022-04-16] MEDS ORDERED: ALBUTEROL SULFATE 2.5 MG/3 ML NEBU ONE ×3 (07:16→19:55)
--- NOTE | 2022-04-16 07:30 | NUR ---
At this time patient remains restless tachypneic HR in the 120's with severe coughing and labor breathing. saturation 88%. sbp within normal.
--- NOTE | 2022-04-16 07:50 | NUR ---
At this time CPAP attempted pt. unable to tolerate. As soon as propofol started to be titrated off patient in respiratory distress. Blood gases drawn. At this time weaning stop due to severe respiratory distress with saturation of 88%, HR in the 113-120's patient noted to be using accessory muscles to breath and as ordered ABG drawn at this time patient back on sedation 60mcg/kg/min.
[2022-04-16 08:14] LABS: ABG BASE EXCESS -2.8 mmol/L; ABG HCO3 24.7 mmol/L; ABG PCO2 54.8 mmHg (35.0-45.0); ABG PH 7.272 (7.350-7.450); ABG PO2 59.1 mmHg (75.0-100.0); ABG SITE RIGHT RADIAL; ABG TOTAL HEMOGLOBIN 13.1 G/dL (13.5-18.0); COHb 0.6 % (0.5-1.5); MetHb 0.1 % (0.0-1.5); O2Hb 87.4 % (94.0-97.0); VENT MODE CPAP
[2022-04-16] MEDS ORDERED: FAMOTIDINE 20 MG TABLET ONE ×2 (08:49→21:47)
[2022-04-16] MEDS: FAMOTIDINE 20 MG TABLET PO SCH ×2 (08:52→21:51)
[2022-04-16] MEDS ORDERED: HYDROCODONE/APAP 5-325MG TABLET ONE (08:56)
[2022-04-16] MEDS ORDERED: HYDROCODONE BIT/HOMATROPINE 5 ML UDC ONE (08:56)
[2022-04-16] MEDS: HYDROCODONE BIT/HOMATROPINE 5 ML UDC PO PRN (08:58)
[2022-04-16] MEDS: HYDROCODONE/APAP 5-325MG TABLET PO PRN (08:58)
[2022-04-16] MEDS: CEFTRIAXONE 1 G in IV DEXTROSE 5% 50 ML IV SCH (09:19)
[2022-04-16] MEDS ORDERED: LORAZEPAM 2 MG/1 ML VIAL ONE ×2 (09:24→21:29)
--- NOTE | 2022-04-16 11:00 | NUR ---
Devin Omer in the unit to see and examine pt. report given orders to continue with care plan received.
[2022-04-16] MEDS ORDERED: methylPREDNISolone SOD SUCC 125 MG/2 ML VIAL ONE ×2 (11:54→18:23)
[2022-04-16] MEDS: LORAZEPAM 2 MG/1 ML VIAL IV PRN ×2 (12:08→21:32)
--- NOTE | 2022-04-16 14:39 | NUR ---
A call from [facility] [place] KP report given and at this time she requested phone number from Physician and when Devin Omer given she requested a physician stating she had spoken to her. Updated on VS, labs values and latest ABG's as stated "be ready with paperwork I'll call you back with information of ETA and number to call for report".
--- NOTE | 2022-04-16 15:46 | NUR ---
A call from dispatch center and at this time I was informed by Karolina Hubbard that pt. has a bed in [facility] ICU room 21005 december call report to with garbage pick up worker time of 1999. Addendum: 04/16/22 at 1604 by LUCIAN WARNER RN [employer] Psychometrist admitting pt. will be [facility].
--- NOTE | 2022-04-16 16:18 | NUR ---
A call to [facility] to give report at this time I spoke with Charge Nurse Harshad who refused to take report stating "I have a patient myself they can call after the change of shift to give report" Harshad was informed that Karolina stated that is ok to call and give report any time before transfer. Harshad still refuse and requested to call next shift with report.
--- NOTE | 2022-04-16 16:40 | NUR ---
Pt remains intubated on CMV 30% Fio2. Weaning attempted early in shift, pt unable to tolerate. Pt began to show signs of respiratory distress, using abdominal and accessory muscles as well as O2 desaturation. ABG was drawn and pt was placed back on previous A/C settings. Pt stable throughout shift, Spo2 and respirations WNL. Pt has episodes of persistent coughing, RN Macarena is aware. In-line tx's tolerated well without adverse reaction. ETT repositioned Q2, ETT/oral sxn prn. BVM at bedside. Vent plugged into red outlet. Will continue to monitor.
--- NOTE | 2022-04-16 17:08 | NUR ---
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 All the required documentation was faxed to by him earlier.
--- NOTE | 2022-04-16 18:15 | NUR ---
Pt. with and episode of vomiting NG -t removed and replace with OG- attending called and notified orders to stop Feeding for now and restart in two hours at 30cc/hr. The vomiting happened after one of pt's episodes of coughing non-stop.
[2022-04-16] MEDS: NEUTRA PHOS PACKET GT ONE ×2 (18:21→19:12)
--- NOTE | 2022-04-16 18:45 | NUR ---
A call from Karolina Hubbard from [employer] and last set of vitals signs given.
--- NOTE | 2022-04-16 19:45 | NUR ---
Telephone report given to Stevie Willoughby. He was informed that pt. had an episode of coughing and after NG tube replaced by OG-t.
--- NOTE | 2022-04-16 20:24 | NUR ---
A call to and at this time I spoke with Karolina outsole caser at and I was informed that there's is a delay in ETOA due to code 3. and picker time was re-schedule to 2200 possibly.
--- NOTE | 2022-04-16 20:33 | NUR ---
Report given to Stevie Orellana who is taking over patient care.
[2022-04-16] MEDS: DOCUSATE SODIUM 100 MG/10 ML LIQUID UDC PO SCH (21:00)
--- NOTE | 2022-04-16 21:34 | NUR ---
pt medicated with ativan for sedation. pt with high pip on vent. suctioned pt, removed water from vent tubing. pt continues to alarm high pip. I called resp therapist to assess the pt and assist to determine reason for alarm.
--- NOTE | 2022-04-16 21:52 | NUR ---
unable to give colace do not have liquid form.
[2022-04-16] MEDS ORDERED: ENOXAPARIN SODIUM 40 MG/0.4 ML DISP.SYRIN SQ ONE (21:57)
[2022-04-16] MEDS: ENOXAPARIN SODIUM 40 MG/0.4 ML DISP.SYRIN SQ SCH (22:29)
--- NOTE | 2022-04-16 22:48 | NUR ---
transport is here to take the pt to [facility]. prn ambulance unit 113 with MARIAH Joseph, and Jake RN is working role of respiratory therapist as well.
== END 2022-04-16 23:00 | disposition short-term general hospital (02) | DRG 208 ==
LOC: ER 16:46 → TRANSITION 18:54
PROVIDERS: ADMIT Internal Medicine; ATTEND Registered Nurse
PROC: 5A09457 Assistance with Respiratory Ventilation, 24-96 Consecutive Hours, Continuous Positive Airway Pressure (ICD-10-PCS; 2022-04-10)
PROC: 5A1945Z Respiratory Ventilation, 24-96 Consecutive Hours (ICD-10-PCS; principal; 2022-04-13)
PROC: 0BH17EZ Insertion of Endotracheal Airway into Trachea, Via Natural or Artificial Opening (ICD-10-PCS; 2022-04-13)
PROC: 05H533Z Insertion of Infusion Device into Right Subclavian Vein, Percutaneous Approach (ICD-10-PCS; 2022-04-13)
PROC: B546ZZA Ultrasonography of Right Subclavian Vein, Guidance (ICD-10-PCS; 2022-04-13)
PROC: 02HV33Z Insertion of Infusion Device into Superior Vena Cava, Percutaneous Approach (ICD-10-PCS; 2022-04-13)
PROC: B548ZZA Ultrasonography of Superior Vena Cava, Guidance (ICD-10-PCS; 2022-04-13)
DX: J44.1 Chronic obstructive pulmonary disease with (acute) exacerbation (principal); J96.21 Acute and chronic respiratory failure with hypoxia; J96.22 Acute and chronic respiratory failure with hypercapnia; E87.1 Hypo-osmolality and hyponatremia; N17.9 Acute kidney failure, unspecified; E11.9 Type 2 diabetes mellitus without complications; E86.1 Hypovolemia; E87.5 Hyperkalemia; E88.09 Other disorders of plasma-protein metabolism, not elsewhere classified; F17.210 Nicotine dependence, cigarettes, uncomplicated; F41.9 Anxiety disorder, unspecified; J20.9 Acute bronchitis, unspecified; Z20.822 Contact with and (suspected) exposure to COVID-19
CPT/HCPCS: 36415; 36569; 36600; 71045; 74018; 82803; 83735; 84100; 84484; 85025; 87070; 93005; 94002; 94003; 94640; 94660; A4663; G0378; J0330; J0696; J1650; J1720; J2060; J2370; J2920; J2930; J3105; J3475; J3490; J3590; J7040